=== PATIENT | female | born 1990 | race Caucasian/White ===

== ENCOUNTER 2016-08-05 18:18 | Emergency (ER) | payer BC, OTHER ==
[~2016-08-05] VITALS: Ht 162.6 cm; Wt 52.6 kg
[2016-08-05 18:19] VITALS: BP 129/90
[2016-08-05] MEDS ORDERED: SODIUM CHLORIDE 0.9% 1,000ML IVBOLUS ONE (19:00)
[2016-08-05] MEDS ORDERED: FAMOTIDINE 20 MG/2 ML IVP ONE (19:00)
[2016-08-05] MEDS ORDERED: SODIUM CHLORIDE FLUSH 10ML SYR IVF ONE (19:00)
[2016-08-05] MEDS ORDERED: ONDANSETRON 2MG/ML, 2ML IVPush ONE (19:00)
== END 2016-08-05 20:15 | disposition home or self-care (01) ==
LOC: ED 19:50
DX: R10.84 Generalized abdominal pain (principal)
CPT/HCPCS: 99281

== ENCOUNTER 2020-08-20 00:26 | Emergency (ER) | payer BC, MEDICAID ==
[~2020-08-20] VITALS: Ht 162.6 cm; Wt 49.7 kg
--- NOTE | 2020-08-20 00:51 | NUR ---
PT C/O OF ABSCESS ON RIGHT FOREARM FROM USING METH AND HEROIN. PT IN NAD, ATTACHED TO MONIOTORS, VSS WITH SLIGHTLY ELEVATED HR. FRIEND AT BEDSIDE. BED IN LOW POSITION, RAILS ENGAGED, CALL LIGHT ON LAP. EKG AT BEDSIDE. WCTM
[2020-08-20] MEDS ORDERED: LIDOCAINE 1%-EPI 1:100K, 20ML ONE (00:54)
[2020-08-20] MEDS ORDERED: LIDOCAINE 1%-EPI 1:100K, 20ML SQ ONE (01:00)
[2020-08-20 01:30] VITALS: BP 137/94
--- NOTE | 2020-08-20 01:31 | NUR ---
Patient is resting comfortably in bed. Bed in lowest, rails engaged, call light on lap. Vital Signs within normal limits. WCTM.
--- NOTE | 2020-08-20 02:22 | NUR ---
Patient/Caregiver given discharge instructions and they have confirmed that they understand the instructions. Patient ambulatory with steady gait. NAD, all questions answered appropriately, denies additional needs at this time. No personal belongings left in room after discharge.
== END 2020-08-20 02:25 | disposition home or self-care (01) ==
LOC: ED 02:00
DX: L03.114 Cellulitis of left upper limb (principal); L02.414 Cutaneous abscess of left upper limb; M79.632 Pain in left forearm; Z72.9 Problem related to lifestyle, unspecified; F17.210 Nicotine dependence, cigarettes, uncomplicated; F15.10 Other stimulant abuse, uncomplicated; F11.10 Opioid abuse, uncomplicated
CPT/HCPCS: 10060; 93005; 99406